=== PATIENT | female | born 2000 | race African-American/Black ===

== ENCOUNTER 2019-06-28 19:49 | Inpatient (IN) | payer OTHER ==
[~2019-06-28] VITALS: Ht 172.7 cm; Wt 64.0 kg
[2019-06-28] MEDS ORDERED: ONDANSETRON HCL 4MG/2ML INJ IV STA (20:11)
[2019-06-28] MEDS ORDERED: SODIUM CHLORIDE 0.9% 1,000 ML IV ONE ×2 (20:11→21:15)
[2019-06-28 20:38] LABS: CHLORIDE 104 mEq/L (98-107)
[2019-06-28 20:41] LABS: ETHANOL BLOOD < 10 mg/dL
[2019-06-28 20:46] LABS: BASOPHILS % 0.2 % (0.0-2.0); EOSINOPHILS % 0.1 % (0.0-5.0); HEMATOCRIT. 39.5 % (36.0-48.0); HEMOGLOBIN. 13.3 g/dL (12.0-16.0); LYMPHOCYTES % 7.6 % (20.0-50.0); MEAN CORPUSCULAR HEMOGLOBIN 28.9 pg (28.0-32.0); MEAN CORPUSCULAR VOLUME 86.1 fL (81.0-99.0); MEAN PLATELET VOLUME 7.6 fl (7.4-10.4); MONOCYTES % 5.2 % (2.0-8.0); NEUTROPHILS % 86.9 % (40.0-76.0); PLATELET 289 x1000/uL (130-400); RED BLOOD CELL COUNT 4.59 mill/uL (4.2-5.4); RED CELL DISTRIBUTION WIDTH 13.3 % (11.6-14.6)
[2019-06-28] MEDS ORDERED: POTASSIUM CHLORIDE 20MEQ TABLET SR PO ONE (21:15)
[2019-06-28] MEDS ORDERED: KCL 20MEQ/100ML PREMIX 100 ML IV ONE (21:15)
[2019-06-28 21:20] LABS: CLARITY URINE CLEAR (CLEAR); COLOR URINE YELLOW (YELLOW); KETONES URINE 3+ (NEGATIVE); LEUKOCYTE ESTERASE URINE TRACE (NEGATIVE); NITRITE URINE NEGATIVE (NEGATIVE); OCCULT BLOOD URINE NEGATIVE (NEGATIVE); PH URINE 6.5 (4.5-8.0); PROTEIN URINE NEGATIVE (NEGATIVE); SPECIFIC GRAVITY URINE 1.022 (1.005-1.030)
[2019-06-28 21:39] LABS: *AMPHETAMINES SCREEN URINE NEGATIVE (NEGATIVE); *BARBITURATES SCREEN URINE NEGATIVE (NEGATIVE); *BENZODIAZEPINES SCREEN URINE NEGATIVE (NEGATIVE); *COCAINE SCREEN URINE NEGATIVE (NEGATIVE); METHADONE URINE SCREEN NEGATIVE (NEGATIVE); OPIATES URINE SCREEN NEGATIVE (NEGATIVE); PHENCYCLIDINE URINE SCREEN NEGATIVE (NEGATIVE)
[2019-06-28 21:47] LABS: CANNABINOID URINE SCREEN PRESUMTIVE POSITIVE (NEGATIVE)
[2019-06-29] MEDS ORDERED: SODIUM CHLORIDE 0.9% 1,000 ML IV ONE
[2019-06-29] MEDS ORDERED: CEFTRIAXONE 1 G PREMIX 50 ML IV ONE (01:00)
[2019-06-29] MEDS ORDERED: ONDANSETRON HCL 4MG/2ML INJ IV ONE (01:00)
[2019-06-29] MEDS ORDERED: METOCLOPRAMIDE HCL 10MG/2ML VIAL IV ONE (04:30)
[2019-06-29] MEDS ORDERED: DIPHENHYDRAMINE 50MG/ML VIAL IV ONE (06:15)
[2019-06-29] MEDS ORDERED: MORPHINE SULFATE 2 MG/ML CPJ (NOT FOR IM USE) IV PRN (09:30)
[2019-06-29] MEDS: METOCLOPRAMIDE HCL 10MG/2ML VIAL IV PRN ×2 (10:04→23:23)
[2019-06-29] MEDS: POTASSIUM CHLORIDE INJ 40 MEQ in DEXT 5%/0.9% NACL 1,000 ML IV SCH ×2 (10:35→20:54)
[2019-06-29] MEDS: PROCHLORPERAZINE 10MG/2ML VIAL IV PRN (14:47)
[2019-06-29] MEDS ORDERED: MAGNESIUM 4 G PREMIX 100 ML IV NR (16:00)
[2019-06-29] MEDS: PANTOPRAZOLE SODIUM 40 MG/VIAL IV SCH (16:05)
[2019-06-29 16:32] LABS: PHOSPHORUS 2.8 mg/dL (2.5-4.9)
[2019-06-30] VITALS (7 sets, daily range): BP systolic 101–135; BP diastolic 46–91
[2019-06-30] MEDS: METOCLOPRAMIDE HCL 10MG/2ML VIAL IV PRN ×2 (05:34→11:30)
[2019-06-30 06:49] LABS: HEMATOCRIT. 40.3 % (36.0-48.0); HEMOGLOBIN. 13.8 g/dL (12.0-16.0); MEAN CORPUSCULAR HEMOGLOBIN 28.9 pg (28.0-32.0); MEAN CORPUSCULAR VOLUME 84.5 fL (81.0-99.0); MEAN PLATELET VOLUME 7.9 fl (7.4-10.4); PLATELET 291 x1000/uL (130-400); RED BLOOD CELL COUNT 4.77 mill/uL (4.2-5.4); RED CELL DISTRIBUTION WIDTH 13.3 % (11.6-14.6)
[2019-06-30 07:31] LABS: CHLORIDE 106 mEq/L (98-107)
[2019-06-30 07:42] LABS: PHOSPHORUS 2.7 mg/dL (2.5-4.9)
[2019-06-30] MEDS: PANTOPRAZOLE SODIUM 40 MG/VIAL IV SCH (08:27)
[2019-06-30] MEDS: POTASSIUM CHLORIDE INJ 40 MEQ in DEXT 5%/0.9% NACL 1,000 ML IV SCH ×3 (10:00→16:36)
[2019-06-30] MEDS ORDERED: POTASSIUM CHLORIDE 20MEQ TABLET SR PO NR (10:00)
[2019-06-30] MEDS ORDERED: POTASSIUM CHLORIDE INJ 40 MEQ in DEXT 5% WATER 500 ML IV ONE (14:00)
[2019-06-30] MEDS ORDERED: HYDROXYZINE 10 MG TABLET PO PRN (14:00)
[2019-06-30 14:04] LABS: PLATELET ESTIMATE NORMAL
[2019-06-30] MEDS: PROCHLORPERAZINE 10MG/2ML VIAL IV PRN ×2 (14:51→21:56)
[2019-06-30] MEDS: POTASSIUM CHLORIDE INJ 40 MEQ in DEXT 5% WATER 500 ML IV NR ×2 (15:01→17:00)
[2019-07-01] VITALS: BP 108/67
[2019-07-01] MEDS: METOCLOPRAMIDE HCL 10MG/2ML VIAL IV PRN ×2 (03:00→10:08)
[2019-07-01] MEDS: POTASSIUM CHLORIDE INJ 40 MEQ in DEXT 5%/0.9% NACL 1,000 ML IV SCH ×2 (03:01→13:00)
[2019-07-01 04:00] VITALS: BP 133/84
[2019-07-01 06:43] LABS: BASOPHILS % 0.3 % (0.0-2.0); EOSINOPHILS % 0.1 % (0.0-5.0); HEMATOCRIT. 37.6 % (36.0-48.0); HEMOGLOBIN. 12.9 g/dL (12.0-16.0); LYMPHOCYTES % 7.2 % (20.0-50.0); MEAN CORPUSCULAR HEMOGLOBIN 29.3 pg (28.0-32.0); MEAN CORPUSCULAR VOLUME 85.6 fL (81.0-99.0); MEAN PLATELET VOLUME 7.8 fl (7.4-10.4); MONOCYTES % 10.1 % (2.0-8.0); NEUTROPHILS % 82.3 % (40.0-76.0); PLATELET 279 x1000/uL (130-400); RED BLOOD CELL COUNT 4.39 mill/uL (4.2-5.4); RED CELL DISTRIBUTION WIDTH 13.5 % (11.6-14.6)
[2019-07-01] MEDS: PROCHLORPERAZINE 10MG/2ML VIAL IV PRN ×3 (06:55→19:02)
[2019-07-01 08:00] VITALS: BP 135/80
[2019-07-01 08:12] LABS: CHLORIDE 108 mEq/L (98-107)
[2019-07-01 08:21] LABS: PHOSPHORUS 2.4 mg/dL (2.5-4.9)
[2019-07-01] MEDS ORDERED: FAMOTIDINE 20MG/2ML VIAL IV SCH (09:00)
[2019-07-01] MEDS ORDERED: POTASSIUM PHOS,M-BASIC-D-BASIC 20 MMOL in DEXT 5% WATER 243.3333 ML IV ONE (09:30)
[2019-07-01 12:00] VITALS: BP 125/70
[2019-07-01 16:00] VITALS: BP 131/83
[2019-07-01 20:00] VITALS: BP 128/80
[2019-07-01] MEDS: PANTOPRAZOLE SODIUM 40 MG/VIAL IV SCH (20:33)
[2019-07-02] VITALS: BP 114/71
[2019-07-02 04:00] VITALS: BP 119/79
[2019-07-02 06:36] LABS: BASOPHILS % 0.4 % (0.0-2.0); HEMATOCRIT. 38.5 % (36.0-48.0); HEMOGLOBIN. 13.2 g/dL (12.0-16.0); LYMPHOCYTES % 14.6 % (20.0-50.0); MEAN CORPUSCULAR VOLUME 84.9 fL (81.0-99.0); MEAN PLATELET VOLUME 7.9 fl (7.4-10.4); MONOCYTES % 13.8 % (2.0-8.0); NEUTROPHILS % 70.2 % (40.0-76.0); PLATELET 268 x1000/uL (130-400); RED BLOOD CELL COUNT 4.54 mill/uL (4.2-5.4); RED CELL DISTRIBUTION WIDTH 13.2 % (11.6-14.6)
[2019-07-02 08:00] VITALS: BP 124/79
[2019-07-02] MEDS: PANTOPRAZOLE SODIUM 40 MG/VIAL IV SCH (08:20)
[2019-07-02] MEDS: POTASSIUM CHLORIDE INJ 40 MEQ in DEXT 5%/0.9% NACL 1,000 ML IV SCH (08:20)
[2019-07-02 12:00] VITALS: BP 125/70
[2019-07-02 13:11] VITALS: BP 121/81
[2019-07-02 14:18] LABS: CHLORIDE 104 mEq/L (98-107)
[2019-07-02 14:29] LABS: PHOSPHORUS 3.4 mg/dL (2.5-4.9)
[2019-07-02] MEDS ORDERED: FAMOTIDINE 20MG/2ML VIAL IV SCH (21:00)
== END 2019-07-02 16:40 | disposition home or self-care (01) | DRG 918 ==
LOC: ER 19:49 → 6EST 06-29 01:29 → ENRESERV 06-29 22:31
PROVIDERS: ADMIT Internal Medicine; ATTEND Internal Medicine
DX: T40.7X1A Poisoning by cannabis (derivatives), accidental (unintentional), initial encounter (principal); K56.7 Ileus, unspecified; R65.10 Systemic inflammatory response syndrome (SIRS) of non-infectious origin without acute organ dysfunction; E87.6 Hypokalemia; E83.42 Hypomagnesemia; R11.2 Nausea with vomiting, unspecified; F12.90 Cannabis use, unspecified, uncomplicated; F41.1 Generalized anxiety disorder; K52.9 Noninfective gastroenteritis and colitis, unspecified; F32.9 Major depressive disorder, single episode, unspecified; F41.9 Anxiety disorder, unspecified; Z80.3 Family history of malignant neoplasm of breast; Z82.49 Family history of ischemic heart disease and other diseases of the circulatory system; Z83.3 Family history of diabetes mellitus; Y92.89 Other specified places as the place of occurrence of the external cause
CPT/HCPCS: 36415; 74176; 80048; 80053; 80305; 80320; 81003; 81025; 83735; 84100; 85025; 99284; 99285; C9113; J0696; J0780; J1200; J2405; J2765; J3475; J3480; J3490; J7030; J7042; J7060; G0480